=== PATIENT | male | born 1965 | race African-American/Black ===

== ENCOUNTER 2021-04-15 09:32 | Inpatient (IN) | payer OTHER ==
[2021-04-15] MEDS ORDERED: SODIUM CHLORIDE 1,000 ML IV STA (10:05)
[2021-04-15] MEDS ORDERED: morphine SULFATE 4 MG/ML VIAL IVPUSH ONE (10:05)
[2021-04-15] MEDS ORDERED: morphine SULFATE 4 MG/ML VIAL ONE (10:20)
[2021-04-15 11:52] LABS: BASO % 0.8 % (0-2.0); EOS % 2.5 % (0-4.5); HEMATOCRIT 20.6 % (35.4-49); LYMPH % 5.6 % (8-40); MCH 32.5 pg (25.7-33.7); MCHC 33.7 g/dl (32.0-35.9); MEAN CELL VOLUME 96.5 fl (80-96); MEAN PLT VOLUME 8.5 fl (7.5-11.1); MONO % 6.4 % (3.8-10.2); NEUT % 84.7 % (42.8-82.8); PLATELET COUNT 253 K/MM3 (134-434); RBC 2.13 M/mm3 (4.00-5.60); RDW 14.6 % (11.9-15.9); WHITE BLOOD COUNT 7.1 K/mm3 (4.0-10.0)
[2021-04-15 11:54] LABS: HEMOGLOBIN 6.9 GM/dL (11.7-16.9)
[2021-04-15 12:00] LABS: INR 1.21 (0.83-1.09); PROTHROMBIN TIME (PATIENT) 14.6 SEC (9.7-13.0)
[2021-04-15 12:03] LABS: ACTIVATED PTT 29.6 SECONDS (25.2-36.5)
[2021-04-15 12:10] LABS: EPI CELLS 7 /uL (0-25.1); HYALINE CASTS 0 /uL (0-3.1); PH,URINE 6.5 (5.0-8.0); URINE APPEARANCE TURBID; URINE BILIRUBIN 2+ (NEGATIVE); URINE COLOR RED; URINE GLUCOSE (UA) NEGATIVE (NEGATIVE); URINE KETONE NEGATIVE (NEGATIVE); URINE LEUK ESTERASE 3+ (NEGATIVE); URINE NITRITE POSITIVE (NEGATIVE); URINE PROTEIN 3+ (NEGATIVE); URINE RBC 13 /uL (0-23.9); URINE UROBILINOGEN 0.2 mg/dL (0.2-1.0); URINE WBC 0 /uL (0-25.8)
[2021-04-15 12:13] LABS: CALCIUM 7.5 mg/dL (8.5-10.1)
[2021-04-15 12:14] LABS: ALBUMIN 2.6 g/dl (3.4-5.0); BLOOD UREA NITROGEN 42.3 mg/dL (7-18)
[2021-04-15] MEDS ORDERED: CEFTRIAXONE 1,000 MG in DEXTROSE 5%-WATER - 50 ML IVPB ONE (12:15)
[2021-04-15 12:17] LABS: CREATININE 6.5 mg/dL (0.55-1.3)
[2021-04-15 12:19] LABS: BILIRUBIN,TOTAL 0.3 mg/dL (0.2-1); TOT PROT 6.7 g/dl (6.4-8.2)
[2021-04-15] MEDS ORDERED: CEFTRIAXONE 1 GM/50 ML BAG ONE (12:25)
[2021-04-15 12:32] LABS: URINE BACTERIA 2.3 /uL (0-1359)
[2021-04-15] MEDS ORDERED: DEXTROSE 5%-0.45% SALINE 1,000 ML IV SCH (14:30)
[2021-04-15] MEDS ORDERED: amLODIPine BESYLATE 5 MG TABLET (FP) PO SCH (14:45)
[2021-04-15] MEDS ORDERED: amLODIPine BESYLATE 5 MG TABLET (FP) ONE (15:32)
[2021-04-15] MEDS ORDERED: PANTOPRAZOLE 40 MG TABLET ONE (15:32)
[2021-04-15] MEDS ORDERED: MORPHINE SULFATE 2 MG/ML VIAL ONE (15:32)
[2021-04-15] MEDS: PANTOPRAZOLE 40 MG TABLET PO SCH (15:39)
[2021-04-15] MEDS: MORPHINE SULFATE 2 MG/ML VIAL IVPUSH PRN ×2 (15:39→20:25)
[2021-04-15 20:24] VITALS: BMI 26.3
[2021-04-15] MEDS ORDERED: IRON SUCROSE INJECTION 200 MG in SODIUM CHLORIDE 90 ML IVPB ONE (22:36)
[2021-04-15] MEDS ORDERED: MORPHINE SULFATE 2 MG/ML VIAL IVPUSH ONE (22:37)
[2021-04-15] MEDS: DEXTROSE 5%-NORMAL SALINE 1,000 ML IV SCH (23:17)
[2021-04-16] MEDS: morphine SULFATE 4 MG/ML VIAL IVPUSH PRN ×4 (01:09→20:13)
[2021-04-16] MEDS ORDERED: IRON SUCROSE INJECTION 100 MG in SODIUM CHLORIDE 95 ML IVPB ONE (06:51)
[2021-04-16 07:59] LABS: EOS % 4.6 % (0-4.5); HEMATOCRIT 19.8 % (35.4-49); MCH 33.4 pg (25.7-33.7); MCHC 34.4 g/dl (32.0-35.9); MEAN CELL VOLUME 97.3 fl (80-96); MEAN PLT VOLUME 8.3 fl (7.5-11.1); MONO % 5.6 % (3.8-10.2); NEUT % 76.8 % (42.8-82.8); PLATELET COUNT 280 K/MM3 (134-434); RBC 2.03 M/mm3 (4.00-5.60); RDW 14.9 % (11.9-15.9)
[2021-04-16 08:16] LABS: HEMOGLOBIN 6.8 GM/dL (11.7-16.9)
[2021-04-16 08:22] LABS: ALBUMIN 2.6 g/dl (3.4-5.0); BLOOD UREA NITROGEN 37.4 mg/dL (7-18); CALCIUM 7.2 mg/dL (8.5-10.1)
[2021-04-16 08:26] LABS: CREATININE 5.9 mg/dL (0.55-1.3)
[2021-04-16 08:27] LABS: TOT PROT 6.7 g/dl (6.4-8.2)
[2021-04-16 08:30] LABS: BILIRUBIN,TOTAL 0.3 mg/dL (0.2-1)
[2021-04-16] MEDS ORDERED: EPOETIN ALFA-EPBX 20,000 UNIT/ML VIAL SQ ONE (09:00)
[2021-04-16] MEDS ORDERED: PT OWN MED DRAWER 7, Y5N ONE (09:30)
[2021-04-16] MEDS: PANTOPRAZOLE 40 MG TABLET PO SCH (09:31)
[2021-04-16] MEDS: DEXTROSE 5%-NORMAL SALINE 1,000 ML IV SCH ×2 (09:33→20:12)
[2021-04-16] MEDS ORDERED: DARUNAVIR/COB/EMTRI/TENOF (SYMTUZA) TABLET (NF) PO SCH (10:00)
[2021-04-16] MEDS: CYANOCOBALAMIN 1,000 MCG TABLET (FP) PO SCH (10:53)
[2021-04-16] MEDS: FOLIC ACID 1 MG TABLET (FP) PO SCH (10:53)
[2021-04-17] MEDS: DEXTROSE 5%-NORMAL SALINE 1,000 ML IV SCH ×3 (01:11→17:07)
[2021-04-17] MEDS: morphine SULFATE 4 MG/ML VIAL IVPUSH PRN ×2 (01:11→05:55)
[2021-04-17 08:04] LABS: BASO % 0.7 % (0-2.0); EOS % 4.6 % (0-4.5); HEMATOCRIT 15.9 % (35.4-49); LYMPH % 9.9 % (8-40); MCH 32.8 pg (25.7-33.7); MCHC 33.6 g/dl (32.0-35.9); MEAN CELL VOLUME 97.7 fl (80-96); MEAN PLT VOLUME 8.1 fl (7.5-11.1); MONO % 7.1 % (3.8-10.2); NEUT % 77.7 % (42.8-82.8); PLATELET COUNT 206 K/MM3 (134-434); RBC 1.63 M/mm3 (4.00-5.60); RDW 14.9 % (11.9-15.9); WHITE BLOOD COUNT 4.3 K/mm3 (4.0-10.0)
[2021-04-17 08:19] LABS: CALCIUM 7.4 mg/dL (8.5-10.1)
[2021-04-17 08:22] LABS: BLOOD UREA NITROGEN 34.4 mg/dL (7-18)
[2021-04-17 08:25] LABS: CREATININE 5.6 mg/dL (0.55-1.3)
[2021-04-17 09:18] LABS: HEMOGLOBIN 5.3 GM/dL (11.7-16.9)
[2021-04-17] MEDS ORDERED: EPOETIN ALFA-EPBX 20,000 UNIT/ML VIAL SQ ONE ×2 (10:01→10:05)
[2021-04-17] MEDS: CYANOCOBALAMIN 1,000 MCG TABLET (FP) PO SCH (11:38)
[2021-04-17] MEDS: POLYETHYLENE GLYCOL 3350 119 GM BTL PO SCH (11:38)
[2021-04-17] MEDS: PANTOPRAZOLE 40 MG TABLET PO SCH (11:38)
[2021-04-17] MEDS: ATOVAQUONE 750 MG/5 ML (UNIT-DOSE PACKAGING) PO SCH (11:38)
[2021-04-17] MEDS: FOLIC ACID 1 MG TABLET (FP) PO SCH (11:38)
[2021-04-17] MEDS ORDERED: IRON SUCROSE INJECTION 100 MG in SODIUM CHLORIDE 95 ML IVPB ONE (14:00)
[2021-04-18] MEDS: DEXTROSE 5%-NORMAL SALINE 1,000 ML IV SCH (02:15)
[2021-04-18 07:29] LABS: BASO % 0.6 % (0-2.0); EOS % 3.5 % (0-4.5); MCH 32.6 pg (25.7-33.7); MCHC 33.4 g/dl (32.0-35.9); MEAN CELL VOLUME 97.6 fl (80-96); MONO % 6.7 % (3.8-10.2); NEUT % 73.2 % (42.8-82.8); PLATELET COUNT 231 K/MM3 (134-434); RBC 1.64 M/mm3 (4.00-5.60); WHITE BLOOD COUNT 5.3 K/mm3 (4.0-10.0)
[2021-04-18 07:31] LABS: HEMOGLOBIN 5.3 GM/dL (11.7-16.9)
[2021-04-18 07:52] LABS: ALBUMIN 2.2 g/dl (3.4-5.0); BLOOD UREA NITROGEN 27.8 mg/dL (7-18); CALCIUM 7.3 mg/dL (8.5-10.1)
[2021-04-18 07:57] LABS: BILIRUBIN,TOTAL 0.4 mg/dL (0.2-1); TOT PROT 5.7 g/dl (6.4-8.2)
[2021-04-18] MEDS: CYANOCOBALAMIN 1,000 MCG TABLET (FP) PO SCH (09:33)
[2021-04-18] MEDS: FOLIC ACID 1 MG TABLET (FP) PO SCH (09:33)
[2021-04-18] MEDS: PANTOPRAZOLE 40 MG TABLET PO SCH (09:34)
[2021-04-18] MEDS: POLYETHYLENE GLYCOL 3350 119 GM BTL PO SCH (09:34)
[2021-04-18] MEDS ORDERED: EPOETIN ALFA-EPBX 20,000 UNIT/ML VIAL SQ ONE (10:00)
[2021-04-18] MEDS: ATOVAQUONE 750 MG/5 ML (UNIT-DOSE PACKAGING) PO SCH (12:27)
[2021-04-18] MEDS ORDERED: DEXTROSE 5%-WATER - 1,000 ML IV SCH (13:00)
[2021-04-18] MEDS ORDERED: IRON SUCROSE INJECTION 100 MG in SODIUM CHLORIDE 95 ML IVPB ONE (14:24)
[2021-04-19] MEDS: morphine SULFATE 4 MG/ML VIAL IVPUSH PRN (01:55)
[2021-04-19 05:55] VITALS: PULSE 99
[2021-04-19 07:59] LABS: BASO % 0.7 % (0-2.0); EOS % 3.9 % (0-4.5); LYMPH % 13.3 % (8-40); MCH 32.5 pg (25.7-33.7); MCHC 32.9 g/dl (32.0-35.9); MEAN CELL VOLUME 98.8 fl (80-96); MEAN PLT VOLUME 7.9 fl (7.5-11.1); MONO % 6.8 % (3.8-10.2); NEUT % 75.3 % (42.8-82.8); PLATELET COUNT 241 K/MM3 (134-434); RBC 1.56 M/mm3 (4.00-5.60); WHITE BLOOD COUNT 5.9 K/mm3 (4.0-10.0)
[2021-04-19 08:19] LABS: HEMATOCRIT 15.5 % (35.4-49); HEMOGLOBIN 5.1 GM/dL (11.7-16.9)
[2021-04-19 08:20] LABS: CALCIUM 7.4 mg/dL (8.5-10.1)
[2021-04-19 08:24] LABS: CREATININE 4.7 mg/dL (0.55-1.3)
[2021-04-19] MEDS ORDERED: EPOETIN ALFA-EPBX 20,000 UNIT/ML VIAL SQ ONE (09:00)
[2021-04-19 10:42] LABS: ANISOCYTOSIS 0; MACROCYTOSIS 0; PLATELET ESTIMATE NORMAL
[2021-04-19] MEDS: PANTOPRAZOLE 40 MG TABLET PO SCH (10:55)
[2021-04-19] MEDS: CYANOCOBALAMIN 1,000 MCG TABLET (FP) PO SCH (10:55)
[2021-04-19] MEDS: FOLIC ACID 1 MG TABLET (FP) PO SCH (10:55)
[2021-04-19] MEDS: POLYETHYLENE GLYCOL 3350 119 GM BTL PO SCH (10:56)
[2021-04-19 12:50] VITALS: BP 129/70; TEMP 98.6
== END 2021-04-19 14:46 | disposition short-term general hospital (02) | DRG 683 ==
LOC: JER 09:32 → JERBED 12:55 → J7W 19:48
PROVIDERS: ADMIT Internal Medicine; ATTEND Internal Medicine
DX: N17.9 Acute kidney failure, unspecified (principal); N39.0 Urinary tract infection, site not specified; E87.0 Hyperosmolality and hypernatremia; D62 Acute posthemorrhagic anemia; Z21 Asymptomatic human immunodeficiency virus [HIV] infection status; R31.0 Gross hematuria; I12.9 Hypertensive chronic kidney disease with stage 1 through stage 4 chronic kidney disease, or unspecified chronic kidney disease; N18.9 Chronic kidney disease, unspecified; D64.9 Anemia, unspecified; E88.09 Other disorders of plasma-protein metabolism, not elsewhere classified; R10.2 Pelvic and perineal pain; D50.9 Iron deficiency anemia, unspecified; Z85.46 Personal history of malignant neoplasm of prostate
CPT/HCPCS: 36415; 71045-TC-FY; 76775-TC; 76856-TC; 80048; 80053; 81003; 82728; 83540; 83550; 83605; 85025; 85379; 85610; 85730; 86359; 86360; 87086; 93005; 93010; 97116-GP; 97161-GP; 99285-25; C9803; J1756; U0003; U0005

== ENCOUNTER 2022-05-25 11:52 | Inpatient (IN) | payer OTHER ==
[2022-05-25 12:18] VITALS: BMI 23.7
[2022-05-25 13:49] LABS: BASO % 0.9 % (0-2.0); EOS % 6.2 % (0-4.5); HEMATOCRIT 28.1 % (35.4-49); HEMOGLOBIN 9.2 GM/dL (11.7-16.9); LYMPH % 11.2 % (8-40); MCH 32.1 pg (25.7-33.7); MCHC 32.8 g/dl (32.0-35.9); MEAN CELL VOLUME 97.8 fl (80-96); MEAN PLT VOLUME 8.1 fl (7.5-11.1); MONO % 15.7 % (3.8-10.2); PLATELET COUNT 73 10^3/uL (134-434); RBC 2.87 M/mm3 (4.00-5.60); WHITE BLOOD COUNT 2.7 K/mm3 (4.0-10.0)
[2022-05-25 13:58] LABS: CHLORIDE 113 mmol/L (98-107); SODIUM 141 mmol/L (136-145)
[2022-05-25 14:00] LABS: ALBUMIN 3.2 g/dl (3.4-5.0); BLOOD UREA NITROGEN 102.5 mg/dL (7-18); CALCIUM 7.8 mg/dL (8.5-10.1); CO2 17 mmol/L (21-32); GLUCOSE,RANDOM 82 mg/dL (74-106)
[2022-05-25 14:01] LABS: MAGNESIUM 1.9 mg/dL (1.8-2.4)
[2022-05-25 14:03] LABS: PHOSPHOROUS 6.2 mg/dL (2.5-4.9); SGOT/AST 30 U/L (15-37); SGPT/ALT 27 U/L (13-61)
[2022-05-25 14:05] LABS: BILIRUBIN,TOTAL 0.4 mg/dL (0.2-1); TOT PROT 7.7 g/dl (6.4-8.2)
[2022-05-25 14:06] LABS: ALK PHOS 69 U/L (45-117)
[2022-05-25 14:11] LABS: ANION GAP 11 MMOL/L (8-16); CREATININE 16.8 mg/dL (0.55-1.3)
[2022-05-25] MEDS ORDERED: CALCIUM GLUCONATE 10% - 1,000 MG/10 ML VIAL IVPUSH ONE (14:42)
[2022-05-25] MEDS ORDERED: CALCIUM GLUCONATE 10% - 1,000 MG/10 ML VIAL ONE ×2 (14:43→15:11)
[2022-05-25] MEDS ORDERED: INSULIN REGULAR HUMAN 100 UNITS/ML *VIAL IVPUSH ONE (14:43)
[2022-05-25] MEDS ORDERED: DEXTROSE 50%-WATER - 25 GM/50 ML VIAL IVPUSH ONE (14:44)
[2022-05-25] MEDS ORDERED: SODIUM BICARBONATE 8.4% 50 MEQ/50 ML DISP.SYRIN IVPUSH ONE (14:45)
[2022-05-25] MEDS ORDERED: VANCOMYCIN 1 GM in D5W (PRE-DOCKED) 1,000 MG/250 ML IVPB ONE (15:07)
[2022-05-25] MEDS ORDERED: SODIUM CHLORIDE 1,000 ML IV STA (15:10)
[2022-05-25] MEDS ORDERED: CEFEPIME HCL/D5W 1 GM/50 ML BAG IVPB ONE (15:10)
[2022-05-25] MEDS ORDERED: INSULIN REGULAR HUMAN 100 UNITS/ML *VIAL ONE (15:11)
[2022-05-25] MEDS ORDERED: DEXTROSE 50%-WATER 25 GM/50 ML DISP.SYRIN ONE (15:11)
[2022-05-25] MEDS ORDERED: SODIUM BICARBONATE 8.4% 50 MEQ/50 ML VIAL ONE (15:12)
[2022-05-25] MEDS ORDERED: VANCOMYCIN 1 GRAM (PRE-DOCKED) 1,000 MG/250 ML BAG IVPB ONE (15:41)
[2022-05-25] MEDS ORDERED: CEFEPIME 1 GM in DEXTROSE 5%-WATER 100 ML IVPB ONE (16:00)
[2022-05-25] MEDS ORDERED: SODIUM CHLORIDE 250 ML IV PRN (16:37)
[2022-05-25] MEDS ORDERED: ACETAMINOPHEN 325 MG TABLET (FP) PO PRN (19:02)
[2022-05-25] MEDS: DOCUSATE SODIUM 100 MG CAPSULE (FP) PO SCH (21:54)
[2022-05-25] MEDS ORDERED: HEPARIN NA (PORCINE) 5,000 UNITS/ML 1ML VIAL ONE (21:55)
[2022-05-25] MEDS ORDERED: CEFEPIME 1 GM/100 ML BAG IVPB ONE ×2 (21:56→22:19)
[2022-05-25] MEDS: HEPARIN NA (PORCINE) 5,000 UNITS/ML 1ML VIAL SQ SCH (21:58)
[2022-05-26] MEDS ORDERED: PIPERACILLIN/TAZOB 2.25 GM 2.25 GM/50 ML BAG IVPB ONE (01:25)
[2022-05-26] MEDS ORDERED: ACETAMINOPHEN 325 MG TABLET (FP) ONE (01:25)
[2022-05-26] MEDS: PIPERACILLIN/TAZOB 2.25 GM 2.25 GM in DEXTROSE 5%-WATER - 50 ML IVPB SCH ×3 (01:30→17:35)
[2022-05-26] MEDS: VANCOMYCIN 250 MG/5 ML ORAL SOLUTION PO SCH ×4 (03:08→17:35)
[2022-05-26] MEDS ORDERED: VANCOMYCIN 250 MG/5 ML ORAL SOLUTION PO SCH (06:00)
[2022-05-26 06:26] LABS: BASO % 0.8 % (0-2.0); EOS % 5.5 % (0-4.5); HEMATOCRIT 30.6 % (35.4-49); HEMOGLOBIN 10.2 GM/dL (11.7-16.9); LYMPH % 9.4 % (8-40); MCH 31.8 pg (25.7-33.7); MCHC 33.3 g/dl (32.0-35.9); MEAN CELL VOLUME 95.5 fl (80-96); MEAN PLT VOLUME 8.2 fl (7.5-11.1); MONO % 8.1 % (3.8-10.2); NEUT % 76.2 % (42.8-82.8); PLATELET COUNT 71 10^3/uL (134-434); RBC 3.21 M/mm3 (4.00-5.60); RDW 17.1 % (11.9-15.9); WHITE BLOOD COUNT 2.5 K/mm3 (4.0-10.0)
[2022-05-26 06:40] LABS: CHLORIDE 104 mmol/L (98-107); SODIUM 140 mmol/L (136-145)
[2022-05-26 06:41] LABS: CALCIUM 7.4 mg/dL (8.5-10.1)
[2022-05-26 06:42] LABS: ALBUMIN 3.3 g/dl (3.4-5.0); ANION GAP 10 MMOL/L (8-16); CO2 26 mmol/L (21-32); GLUCOSE,RANDOM 86 mg/dL (74-106); MAGNESIUM 1.7 mg/dL (1.8-2.4)
[2022-05-26 06:45] LABS: SGOT/AST 31 U/L (15-37); SGPT/ALT 27 U/L (13-61)
[2022-05-26 06:46] LABS: BILIRUBIN,TOTAL 0.7 mg/dL (0.2-1)
[2022-05-26 06:47] LABS: TOT PROT 8.1 g/dl (6.4-8.2)
[2022-05-26 06:48] LABS: ALK PHOS 72 U/L (45-117)
[2022-05-26] MEDS: HEPARIN NA (PORCINE) 5,000 UNITS/ML 1ML VIAL SQ SCH ×3 (07:00→21:18)
[2022-05-26 07:02] LABS: BLOOD UREA NITROGEN 60.1 mg/dL (7-18); CREATININE 11.4 mg/dL (0.55-1.3)
[2022-05-26] MEDS ORDERED: DEXTROSE 5%-WATER - 50 ML IVPB ONE ×2 (10:16→16:38)
[2022-05-26] MEDS ORDERED: PIPERACILLIN/TAZOBACTAM 2.25 GM VIAL IVPB ONE ×2 (10:16→16:38)
[2022-05-26] MEDS: DOCUSATE SODIUM 100 MG CAPSULE (FP) PO SCH ×2 (10:20→21:18)
[2022-05-26] MEDS ORDERED: VANCOMYCIN 1 GM in D5W (PRE-DOCKED) 1,000 MG/250 ML IVPB SCH (16:00)
[2022-05-27] MEDS: VANCOMYCIN 250 MG/5 ML ORAL SOLUTION PO SCH ×3 (01:00→13:02)
[2022-05-27] MEDS: PIPERACILLIN/TAZOB 2.25 GM 2.25 GM in DEXTROSE 5%-WATER - 50 ML IVPB SCH ×3 (01:00→17:13)
[2022-05-27] MEDS ORDERED: PIPERACILLIN/TAZOBACTAM 2.25 GM VIAL IVPB ONE ×3 (01:03→16:39)
[2022-05-27] MEDS ORDERED: DEXTROSE 5%-WATER - 50 ML IVPB ONE ×3 (01:03→16:39)
[2022-05-27] MEDS ORDERED: LORazepam 2 MG/ML SDV VIAL IVPUSH SCH (06:00)
[2022-05-27 06:46] LABS: ARTERIAL BLD GAS O2 SATURATION 99.8 % (95-98); ARTERIAL BLOOD GAS BASE EXCESS -4.3 mmol/L (-2-2); ARTERIAL BLOOD GAS PO2 455.5 mmHg (80-100); ARTERIAL BLOOD GAS pH 7.357 (7.350-7.450)
[2022-05-27 06:47] LABS: ALLENS TEST POSITIVE
[2022-05-27] MEDS: HEPARIN NA (PORCINE) 5,000 UNITS/ML 1ML VIAL SQ SCH ×3 (07:13→23:00)
[2022-05-27] MEDS: DOCUSATE SODIUM 100 MG CAPSULE (FP) PO SCH ×3 (09:08→23:02)
[2022-05-27 09:28] LABS: COCAINE, UR NEGATIVE (NEGATIVE); METHADONE, UR NEGATIVE (NEGATIVE); OPIATES, URI NEGATIVE (NEGATIVE); PHENCYCLIDINE,URINE NEGATIVE (NEGATIVE); URINE AMPHETAMINES NEGATIVE (NEGATIVE); URINE BARBITURATES NEGATIVE (NEGATIVE); URINE BENZODIAZEPINES NEGATIVE (NEGATIVE)
[2022-05-27] MEDS ORDERED: LORazepam 2 MG/ML SDV VIAL IVPUSH PRN (09:55)
[2022-05-27 13:18] LABS: BASO % 0.8 % (0-2.0); EOS % 4.2 % (0-4.5); HEMATOCRIT 27.4 % (35.4-49); HEMOGLOBIN 9.1 GM/dL (11.7-16.9); LYMPH % 8.1 % (8-40); MCH 31.7 pg (25.7-33.7); MCHC 33.3 g/dl (32.0-35.9); MEAN PLT VOLUME 8.4 fl (7.5-11.1); NEUT % 71.9 % (42.8-82.8); PLATELET COUNT 68 10^3/uL (134-434); RBC 2.88 M/mm3 (4.00-5.60); RDW 16.8 % (11.9-15.9); WHITE BLOOD COUNT 2.1 K/mm3 (4.0-10.0)
[2022-05-27] MEDS: OXcarbazepine 150 MG TABLET (UD) PO SCH ×2 (13:48→23:00)
[2022-05-27] MEDS ORDERED: VANCOMYCIN 1 GM in D5W (PRE-DOCKED) 1,000 MG/250 ML IVPB SCH (16:00)
[2022-05-27 16:05] LABS: CHLORIDE 104 mmol/L (98-107); SODIUM 142 mmol/L (136-145)
[2022-05-27 16:07] LABS: ALBUMIN 3.1 g/dl (3.4-5.0); ANION GAP 9 MMOL/L (8-16); CALCIUM 7.4 mg/dL (8.5-10.1); CO2 29 mmol/L (21-32); GLUCOSE,RANDOM 99 mg/dL (74-106)
[2022-05-27 16:11] LABS: SGOT/AST 28 U/L (15-37); SGPT/ALT 25 U/L (13-61)
[2022-05-27 16:13] LABS: BILIRUBIN,TOTAL 0.6 mg/dL (0.2-1); TOT PROT 7.4 g/dl (6.4-8.2)
[2022-05-27 16:14] LABS: ALK PHOS 59 U/L (45-117)
[2022-05-28] MEDS ORDERED: PIPERACILLIN/TAZOBACTAM 2.25 GM VIAL IVPB ONE ×2 (02:03→08:57)
[2022-05-28] MEDS ORDERED: DEXTROSE 5%-WATER - 50 ML IVPB ONE ×2 (02:03→08:57)
[2022-05-28] MEDS: PIPERACILLIN/TAZOB 2.25 GM 2.25 GM in DEXTROSE 5%-WATER - 50 ML IVPB SCH ×2 (02:05→09:06)
[2022-05-28] MEDS: HEPARIN NA (PORCINE) 5,000 UNITS/ML 1ML VIAL SQ SCH ×3 (06:03→22:28)
[2022-05-28 07:42] LABS: BASO % 0.7 % (0-2.0); EOS % 6.4 % (0-4.5); HEMATOCRIT 28.3 % (35.4-49); HEMOGLOBIN 9.4 GM/dL (11.7-16.9); LYMPH % 17.2 % (8-40); MCH 32.1 pg (25.7-33.7); MCHC 33.2 g/dl (32.0-35.9); MEAN CELL VOLUME 96.6 fl (80-96); MEAN PLT VOLUME 8.8 fl (7.5-11.1); MONO % 15.6 % (3.8-10.2); NEUT % 60.1 % (42.8-82.8); PLATELET COUNT 60 10^3/uL (134-434); RBC 2.93 M/mm3 (4.00-5.60); RDW 16.7 % (11.9-15.9); WHITE BLOOD COUNT 2.2 K/mm3 (4.0-10.0)
[2022-05-28 07:58] LABS: CHLORIDE 101 mmol/L (98-107); SODIUM 140 mmol/L (136-145)
[2022-05-28 08:03] LABS: CALCIUM 7.6 mg/dL (8.5-10.1)
[2022-05-28 08:04] LABS: ALBUMIN 3.2 g/dl (3.4-5.0); ANION GAP 11 MMOL/L (8-16); BLOOD UREA NITROGEN 39.7 mg/dL (7-18); CO2 29 mmol/L (21-32); GLUCOSE,RANDOM 90 mg/dL (74-106); MAGNESIUM 2.3 mg/dL (1.8-2.4)
[2022-05-28 08:07] LABS: SGOT/AST 35 U/L (15-37); SGPT/ALT 30 U/L (13-61)
[2022-05-28 08:08] LABS: BILIRUBIN,TOTAL 0.7 mg/dL (0.2-1)
[2022-05-28 08:09] LABS: ALK PHOS 60 U/L (45-117); TOT PROT 7.8 g/dl (6.4-8.2)
[2022-05-28 08:22] LABS: CREATININE 11.1 mg/dL (0.55-1.3)
[2022-05-28] MEDS: DOCUSATE SODIUM 100 MG CAPSULE (FP) PO SCH ×2 (09:04→22:27)
[2022-05-28] MEDS: OXcarbazepine 150 MG TABLET (UD) PO SCH ×2 (09:04→22:27)
[2022-05-28] MEDS ORDERED: OXcarbazepine 300 MG/5 ML 250 ML BULK BOTTLE PO ONE (15:35)
[2022-05-28] MEDS: VANCOMYCIN 250 MG/5 ML ORAL SOLUTION PO SCH ×2 (18:43→23:53)
[2022-05-29] MEDS: HEPARIN NA (PORCINE) 5,000 UNITS/ML 1ML VIAL SQ SCH ×3 (06:49→21:34)
[2022-05-29] MEDS: VANCOMYCIN 250 MG/5 ML ORAL SOLUTION PO SCH ×2 (06:49→12:21)
[2022-05-29 07:29] LABS: BASO % 0.7 % (0-2.0); HEMATOCRIT 30.1 % (35.4-49); HEMOGLOBIN 9.9 GM/dL (11.7-16.9); LYMPH % 12.5 % (8-40); MCH 31.8 pg (25.7-33.7); MEAN CELL VOLUME 96.4 fl (80-96); MEAN PLT VOLUME 8.8 fl (7.5-11.1); MONO % 10.9 % (3.8-10.2); NEUT % 71.9 % (42.8-82.8); PLATELET COUNT 69 10^3/uL (134-434); RBC 3.12 M/mm3 (4.00-5.60); RDW 16.6 % (11.9-15.9); WHITE BLOOD COUNT 2.9 K/mm3 (4.0-10.0)
[2022-05-29 07:43] LABS: CHLORIDE 101 mmol/L (98-107); SODIUM 141 mmol/L (136-145)
[2022-05-29 08:07] LABS: ALBUMIN 3.5 g/dl (3.4-5.0); ANION GAP 12 MMOL/L (8-16); BLOOD UREA NITROGEN 30.8 mg/dL (7-18); CO2 29 mmol/L (21-32); GLUCOSE,RANDOM 96 mg/dL (74-106); MAGNESIUM 2.2 mg/dL (1.8-2.4)
[2022-05-29 08:09] LABS: SGOT/AST 47 U/L (15-37)
[2022-05-29 08:11] LABS: BILIRUBIN,TOTAL 0.5 mg/dL (0.2-1); TOT PROT 8.4 g/dl (6.4-8.2)
[2022-05-29 08:12] LABS: ALK PHOS 64 U/L (45-117); SGPT/ALT 38 U/L (13-61)
[2022-05-29 08:15] LABS: CREATININE 10.3 mg/dL (0.55-1.3)
[2022-05-29] MEDS: DOCUSATE SODIUM 100 MG CAPSULE (FP) PO SCH ×2 (09:45→21:35)
[2022-05-29] MEDS: OXcarbazepine 150 MG TABLET (UD) PO SCH ×2 (09:48→21:34)
[2022-05-29] MEDS ORDERED: SODIUM CHLORIDE 250 ML IV PRN (15:34)
[2022-05-29] MEDS: BACITRACIN 15 GM TUBE TOPICAL OINTMENT TP SCH ×3 (16:15→21:35)
[2022-05-29] MEDS ORDERED: OXcarbazepine 300 MG TABLET (UD) PO SCH (23:48)
[2022-05-30] MEDS: HEPARIN NA (PORCINE) 5,000 UNITS/ML 1ML VIAL SQ SCH ×2 (06:46→13:36)
[2022-05-30 08:07] LABS: CHLORIDE 104 mmol/L (98-107); SODIUM 142 mmol/L (136-145)
[2022-05-30 08:08] LABS: BASO % 0.5 % (0-2.0); EOS % 5.1 % (0-4.5); HEMATOCRIT 31.1 % (35.4-49); HEMOGLOBIN 10.2 GM/dL (11.7-16.9); LYMPH % 15.5 % (8-40); MCH 31.8 pg (25.7-33.7); MCHC 32.9 g/dl (32.0-35.9); MEAN CELL VOLUME 96.9 fl (80-96); MEAN PLT VOLUME 8.9 fl (7.5-11.1); MONO % 12.4 % (3.8-10.2); NEUT % 66.5 % (42.8-82.8); PLATELET COUNT 70 10^3/uL (134-434); RBC 3.21 M/mm3 (4.00-5.60); RDW 16.4 % (11.9-15.9); WHITE BLOOD COUNT 2.6 K/mm3 (4.0-10.0)
[2022-05-30 08:30] LABS: ALBUMIN 3.4 g/dl (3.4-5.0); ANION GAP 11 MMOL/L (8-16); CALCIUM 7.4 mg/dL (8.5-10.1); CO2 27 mmol/L (21-32); GLUCOSE,RANDOM 84 mg/dL (74-106); MAGNESIUM 2.2 mg/dL (1.8-2.4)
[2022-05-30 08:33] LABS: SGOT/AST 52 U/L (15-37)
[2022-05-30 08:34] LABS: BILIRUBIN,TOTAL 0.5 mg/dL (0.2-1); SGPT/ALT 43 U/L (13-61); TOT PROT 8.1 g/dl (6.4-8.2)
[2022-05-30 08:35] LABS: ALK PHOS 63 U/L (45-117)
[2022-05-30 08:52] LABS: CREATININE 13.1 mg/dL (0.55-1.3)
[2022-05-30] MEDS: DOCUSATE SODIUM 100 MG CAPSULE (FP) PO SCH (11:32)
[2022-05-30] MEDS: BACITRACIN 15 GM TUBE TOPICAL OINTMENT TP SCH (11:33)
[2022-05-30 11:57] VITALS: PULSE 99
[2022-05-30 15:00] VITALS: TEMP 99
[2022-05-30 17:17] VITALS: BP 125/77
== END 2022-05-30 17:13 | disposition home health service (06) | DRG 371 ==
LOC: JER 11:52 → JERBED 14:44 → J2W 05-26 09:00
PROVIDERS: ADMIT Internal Medicine; ATTEND Nurse Practitioner Acute Care
PROC: 5A1D70Z Performance of Urinary Filtration, Intermittent, Less than 6 Hours Per Day (ICD-10-PCS; principal; 2022-05-25)
PROC: 5A1D70Z Performance of Urinary Filtration, Intermittent, Less than 6 Hours Per Day (ICD-10-PCS; 2022-05-26)
PROC: 5A1D70Z Performance of Urinary Filtration, Intermittent, Less than 6 Hours Per Day (ICD-10-PCS; 2022-05-28)
PROC: 5A1D70Z Performance of Urinary Filtration, Intermittent, Less than 6 Hours Per Day (ICD-10-PCS; 2022-05-30)
DX: A04.72 Enterocolitis due to Clostridium difficile, not specified as recurrent (principal); N18.6 End stage renal disease; I12.0 Hypertensive chronic kidney disease with stage 5 chronic kidney disease or end stage renal disease; D61.818 Other pancytopenia; R65.10 Systemic inflammatory response syndrome (SIRS) of non-infectious origin without acute organ dysfunction; K60.2 Anal fissure, unspecified; Z21 Asymptomatic human immunodeficiency virus [HIV] infection status; G40.909 Epilepsy, unspecified, not intractable, without status epilepticus; D64.9 Anemia, unspecified; A53.9 Syphilis, unspecified; Z99.2 Dependence on renal dialysis; Z85.46 Personal history of malignant neoplasm of prostate; Z91.14 Patient's other noncompliance with medication regimen
CPT/HCPCS: 0241U-QW; 36415; 36600; 70450-TC; 71045-TC-FY; 80053; 80307; 82550; 82803; 82962; 83605; 83735; 84100; 84132; 84439; 84443; 85025; 86359; 86360; 86593; 86780; 86803; 87015; 87040; 87045; 87046; 87207; 87209; 87324; 87328; 87329; 87340; 87449; 87491; 87493; 87591; 87899; 93005; 93010; 95816; 99285-25; J1644

== ENCOUNTER 2022-06-01 11:36 | Inpatient (IN) | payer OTHER ==
[2022-06-01 12:18] VITALS: BMI 21.2
[2022-06-01 14:02] LABS: BASO % 0.5 % (0-2.0); EOS % 0.5 % (0-4.5); HEMATOCRIT 28.7 % (35.4-49); HEMOGLOBIN 9.3 GM/dL (11.7-16.9); LYMPH % 7.2 % (8-40); MCH 31.5 pg (25.7-33.7); MCHC 32.6 g/dl (32.0-35.9); MEAN CELL VOLUME 96.8 fl (80-96); MEAN PLT VOLUME 8.5 fl (7.5-11.1); MONO % 12.8 % (3.8-10.2); PLATELET COUNT 80 10^3/uL (134-434); RBC 2.96 M/mm3 (4.00-5.60); WHITE BLOOD COUNT 3.7 K/mm3 (4.0-10.0)
[2022-06-01 14:30] LABS: CALCIUM 8.2 mg/dL (8.5-10.1)
[2022-06-01 14:31] LABS: ALBUMIN 3.5 g/dl (3.4-5.0); BLOOD UREA NITROGEN 17.2 mg/dL (7-18)
[2022-06-01 14:34] LABS: CREATININE 5.9 mg/dL (0.55-1.3); PHOSPHOROUS 3.1 mg/dL (2.5-4.9)
[2022-06-01 14:35] LABS: BILIRUBIN,TOTAL 0.6 mg/dL (0.2-1); TOT PROT 8.6 g/dl (6.4-8.2)
[2022-06-01 17:48] LABS: INR 0.99 (0.83-1.09); PROTHROMBIN TIME (PATIENT) 11.4 SEC (9.7-13.0)
[2022-06-01 17:51] LABS: ACTIVATED PTT 24.9 SECONDS (25.2-36.5)
[2022-06-01 19:54] LABS: CSF APPEARANCE CLEAR (CLEAR); CSF COLOR COLORLESS (COLORLESS); CSF WBC 0 mm3 (0-5)
[2022-06-01] MEDS: CALCIUM ACETATE 667 MG CAPSULE (FP) PO SCH (20:38)
[2022-06-01] MEDS: OXcarbazepine 300 MG TABLET (UD) PO SCH (22:21)
[2022-06-02] MEDS: CALCIUM ACETATE 667 MG CAPSULE (FP) PO SCH ×3 (08:23→18:10)
[2022-06-02] MEDS: OXcarbazepine 300 MG TABLET (UD) PO SCH ×2 (10:15→21:51)
[2022-06-02 10:34] LABS: BASO % 0.7 % (0-2.0); EOS % 2.7 % (0-4.5); HEMATOCRIT 27.5 % (35.4-49); LYMPH % 14.7 % (8-40); MCH 31.5 pg (25.7-33.7); MCHC 32.9 g/dl (32.0-35.9); MEAN CELL VOLUME 95.9 fl (80-96); MEAN PLT VOLUME 9.2 fl (7.5-11.1); MONO % 15.9 % (3.8-10.2); PLATELET COUNT 90 10^3/uL (134-434); RBC 2.86 M/mm3 (4.00-5.60); RDW 16.2 % (11.9-15.9); WHITE BLOOD COUNT 2.3 K/mm3 (4.0-10.0)
[2022-06-02 11:17] LABS: CHLORIDE 94 mmol/L (98-107); SODIUM 136 mmol/L (136-145)
[2022-06-02 11:26] LABS: CALCIUM 8.2 mg/dL (8.5-10.1)
[2022-06-02 11:27] LABS: ALBUMIN 3.3 g/dl (3.4-5.0); BLOOD UREA NITROGEN 28.9 mg/dL (7-18); GLUCOSE,RANDOM 104 mg/dL (74-106)
[2022-06-02 11:29] LABS: ANION GAP 10 MMOL/L (8-16); CO2 32 mmol/L (21-32)
[2022-06-02 11:30] LABS: SGOT/AST 82 U/L (15-37); SGPT/ALT 69 U/L (13-61)
[2022-06-02 11:31] LABS: BILIRUBIN,TOTAL 0.5 mg/dL (0.2-1); TOT PROT 7.7 g/dl (6.4-8.2)
[2022-06-02 11:33] LABS: ALK PHOS 60 U/L (45-117)
[2022-06-02 11:34] LABS: CREATININE 8.7 mg/dL (0.55-1.3)
[2022-06-03] MEDS: CALCIUM ACETATE 667 MG CAPSULE (FP) PO SCH ×4 (08:32→17:38)
[2022-06-03 09:30] LABS: HEMATOCRIT 28.5 % (35.4-49); HEMOGLOBIN 9.4 GM/dL (11.7-16.9); MCH 31.7 pg (25.7-33.7); MCHC 32.8 g/dl (32.0-35.9); MEAN CELL VOLUME 96.4 fl (80-96); MEAN PLT VOLUME 8.4 fl (7.5-11.1); PLATELET COUNT 81 10^3/uL (134-434); RBC 2.96 M/mm3 (4.00-5.60); RDW 16.1 % (11.9-15.9); WHITE BLOOD COUNT 2.4 K/mm3 (4.0-10.0)
[2022-06-03] MEDS: OXcarbazepine 300 MG TABLET (UD) PO SCH ×2 (09:38→22:53)
[2022-06-03 09:48] LABS: CHLORIDE 95 mmol/L (98-107); SODIUM 139 mmol/L (136-145)
[2022-06-03 10:00] LABS: BLOOD UREA NITROGEN 42.7 mg/dL (7-18)
[2022-06-03 10:01] LABS: ANION GAP 17 MMOL/L (8-16); CO2 28 mmol/L (21-32); GLUCOSE,RANDOM 129 mg/dL (74-106)
[2022-06-03 10:02] LABS: CALCIUM 8.3 mg/dL (8.5-10.1)
[2022-06-03 10:05] LABS: CREATININE 11.9 mg/dL (0.55-1.3)
[2022-06-03] MEDS ORDERED: SODIUM CHLORIDE 250 ML IV PRN (13:07)
[2022-06-04] MEDS ORDERED: ACETAMINOPHEN 500 MG TABLET (FP) PO ONE (06:07)
[2022-06-04] MEDS ORDERED: ACETAMINOPHEN 325 MG TABLET (FP) PO ONE (06:07)
[2022-06-04 09:47] LABS: HEMATOCRIT 28.8 % (35.4-49); HEMOGLOBIN 9.4 GM/dL (11.7-16.9); MCH 31.5 pg (25.7-33.7); MCHC 32.7 g/dl (32.0-35.9); MEAN CELL VOLUME 96.1 fl (80-96); MEAN PLT VOLUME 9.7 fl (7.5-11.1); PLATELET COUNT 150 10^3/uL (134-434); RDW 16.3 % (11.9-15.9); WHITE BLOOD COUNT 4.2 K/mm3 (4.0-10.0)
[2022-06-04 10:00] LABS: CHLORIDE 94 mmol/L (98-107); SODIUM 136 mmol/L (136-145)
[2022-06-04] MEDS: CALCIUM ACETATE 667 MG CAPSULE (FP) PO SCH ×4 (10:01→18:34)
[2022-06-04] MEDS: OXcarbazepine 300 MG TABLET (UD) PO SCH ×2 (10:02→21:09)
[2022-06-04 10:05] LABS: CALCIUM 8.2 mg/dL (8.5-10.1)
[2022-06-04 10:06] LABS: ANION GAP 15 MMOL/L (8-16); BLOOD UREA NITROGEN 52.5 mg/dL (7-18); CO2 27 mmol/L (21-32); GLUCOSE,RANDOM 112 mg/dL (74-106)
[2022-06-04 10:26] LABS: ANISOCYTOSIS 1+
[2022-06-04 10:33] LABS: CREATININE 14.2 mg/dL (0.55-1.3)
[2022-06-04 11:20] LABS: BF GLUCOSE (CSF ONLY) 49 mg/dL (40-70)
[2022-06-05 08:45] LABS: BASO % 0.6 % (0-2.0); EOS % 2.4 % (0-4.5); HEMATOCRIT 28.7 % (35.4-49); HEMOGLOBIN 9.5 GM/dL (11.7-16.9); LYMPH % 10.4 % (8-40); MCH 31.7 pg (25.7-33.7); MEAN CELL VOLUME 96.2 fl (80-96); MEAN PLT VOLUME 8.2 fl (7.5-11.1); MONO % 17.6 % (3.8-10.2); PLATELET COUNT 118 10^3/uL (134-434); RBC 2.98 M/mm3 (4.00-5.60); RDW 16.2 % (11.9-15.9); WHITE BLOOD COUNT 3.5 K/mm3 (4.0-10.0)
[2022-06-05 09:03] LABS: CHLORIDE 102 mmol/L (98-107); SODIUM 141 mmol/L (136-145)
[2022-06-05 10:04] LABS: CALCIUM 8.2 mg/dL (8.5-10.1)
[2022-06-05 10:05] LABS: BLOOD UREA NITROGEN 29.5 mg/dL (7-18); CO2 31 mmol/L (21-32); GLUCOSE,RANDOM 100 mg/dL (74-106)
[2022-06-05 10:15] LABS: ANION GAP 8 MMOL/L (8-16); CREATININE 8.6 mg/dL (0.55-1.3)
[2022-06-05] MEDS: OXcarbazepine 300 MG TABLET (UD) PO SCH ×2 (10:45→21:59)
[2022-06-05] MEDS: CALCIUM ACETATE 667 MG CAPSULE (FP) PO SCH ×3 (10:45→16:52)
[2022-06-05] MEDS ORDERED: SODIUM CHLORIDE 250 ML IV PRN (15:36)
[2022-06-06 09:37] LABS: BASO % 1.3 % (0-2.0); EOS % 3.7 % (0-4.5); HEMOGLOBIN 8.6 GM/dL (11.7-16.9); LYMPH % 13.1 % (8-40); MCH 31.7 pg (25.7-33.7); MCHC 32.9 g/dl (32.0-35.9); MEAN CELL VOLUME 96.4 fl (80-96); MEAN PLT VOLUME 8.5 fl (7.5-11.1); MONO % 10.5 % (3.8-10.2); NEUT % 71.4 % (42.8-82.8); PLATELET COUNT 121 10^3/uL (134-434); RBC 2.69 M/mm3 (4.00-5.60); RDW 15.9 % (11.9-15.9)
[2022-06-06 09:52] LABS: CHLORIDE 127 mmol/L (98-107); SODIUM 145 mmol/L (136-145)
[2022-06-06 09:54] LABS: ANION GAP -12 MMOL/L (8-16); BLOOD UREA NITROGEN 32.2 mg/dL (7-18); CALCIUM 7.9 mg/dL (8.5-10.1); CO2 30 mmol/L (21-32); GLUCOSE,RANDOM 149 mg/dL (74-106)
[2022-06-06 10:00] LABS: CREATININE 9.3 mg/dL (0.55-1.3)
[2022-06-06] MEDS: CALCIUM ACETATE 667 MG CAPSULE (FP) PO SCH ×3 (12:15→18:07)
[2022-06-06] MEDS: ATOVAQUONE 750 MG/5 ML (UNIT-DOSE PACKAGING) PO SCH (12:17)
[2022-06-06] MEDS: OXcarbazepine 300 MG TABLET (UD) PO SCH ×2 (12:20→21:22)
[2022-06-06] MEDS ORDERED: PENICILLIN G BENZATHINE 2,400,000 UNIT/4 ML PFS IM ONE (13:55)
[2022-06-06] MEDS: FLUCONAZOLE 100 MG TABLET (UD) PO SCH (14:33)
[2022-06-07] MEDS: ATOVAQUONE 750 MG/5 ML (UNIT-DOSE PACKAGING) PO SCH (08:10)
[2022-06-07] MEDS: CALCIUM ACETATE 667 MG CAPSULE (FP) PO SCH ×3 (08:11→17:15)
[2022-06-07] MEDS: FLUCONAZOLE 100 MG TABLET (UD) PO SCH (09:17)
[2022-06-07] MEDS: OXcarbazepine 300 MG TABLET (UD) PO SCH (09:18)
[2022-06-07] MEDS ORDERED: SODIUM CHLORIDE 250 ML IV PRN (09:41)
[2022-06-07] MEDS ORDERED: EPOETIN ALFA-EPBX 10,000 UNIT/ML VIAL SQ ONE (09:41)
[2022-06-07 15:27] VITALS: BP 123/78; PULSE 101; TEMP 99.3
== END 2022-06-07 17:50 | disposition home or self-care (01) | DRG 391 ==
LOC: JER 11:36 → JERBED 14:59 → J8W 19:03
PROVIDERS: ADMIT Internal Medicine; ATTEND Internal Medicine
PROC: 009U3ZX Drainage of Spinal Canal, Percutaneous Approach, Diagnostic (ICD-10-PCS; principal; 2022-06-01)
PROC: 5A1D70Z Performance of Urinary Filtration, Intermittent, Less than 6 Hours Per Day (ICD-10-PCS; 2022-06-06)
DX: R19.7 Diarrhea, unspecified (principal); N18.6 End stage renal disease; B20 Human immunodeficiency virus [HIV] disease; I12.0 Hypertensive chronic kidney disease with stage 5 chronic kidney disease or end stage renal disease; Z99.2 Dependence on renal dialysis; E83.39 Other disorders of phosphorus metabolism; G40.909 Epilepsy, unspecified, not intractable, without status epilepticus; Z91.14 Patient's other noncompliance with medication regimen; Z85.46 Personal history of malignant neoplasm of prostate
CPT/HCPCS: 36415; 70551-TC; 71046-TC-FY; 74176-TC; 80048; 80053; 82945; 83735; 84100; 84157; 85025; 85027; 85610; 85730; 86592; 86593; 86780; 87040; 87070; 87102; 87116; 87205; 87206; 87210; 87899; 93005; 93010; 99285-25; C9803-CS; U0003; U0005

== ENCOUNTER 2024-09-07 13:16 | Inpatient (IN) | payer OTHER ==
[2024-09-07] MEDS ORDERED: ACETAMINOPHEN INJECTION 100 ML ONE (15:09)
[2024-09-07] MEDS: ACETAMINOPHEN 1000 MG/100 ML BAG IVPB ONE (15:14)
[2024-09-07 15:15] LABS: BASO % 1.2 % (0-2.0); EOS % 2.6 % (0-4.5); HEMATOCRIT 30.8 % (35.4-49); HEMOGLOBIN 9.7 GM/dL (11.7-16.9); LYMPH % 24.6 % (8-40); MCH 31.8 pg (25.7-33.7); MCHC 31.6 g/dl (32.0-35.9); MEAN CELL VOLUME 100.4 fl (80-96); MEAN PLT VOLUME 9.9 fl (7.5-11.1); MONO % 11.8 % (3.8-10.2); NEUT % 59.8 % (42.8-82.8); PLATELET COUNT 99 10^3/uL (134-434); RBC 3.06 M/mm3 (4.00-5.60); RDW 19.1 % (11.9-15.9); WHITE BLOOD COUNT 2.8 K/mm3 (4.0-10.0)
[2024-09-07 15:21] LABS: INR 1.03 (0.83-1.09); PROTHROMBIN TIME (PATIENT) 11.8 SEC (9.7-13.0)
[2024-09-07 15:24] LABS: ACTIVATED PTT 32.4 SECONDS (25.2-36.5)
[2024-09-07 15:29] LABS: CHLORIDE 105 mmol/L (98-107); POTASSIUM 4.7 mmol/L (3.5-5.1); SODIUM 141 mmol/L (136-145)
[2024-09-07 15:32] LABS: ALBUMIN 2.6 g/dl (3.4-5.0); ANION GAP 12 mmol/L (4-13); BLOOD UREA NITROGEN 93.4 mg/dL (7-18); CO2 23 mmol/L (21-32); GLUCOSE,RANDOM 91 mg/dL (74-106)
[2024-09-07 15:34] LABS: CALCIUM 6.8 mg/dL (8.5-10.1)
[2024-09-07 15:35] LABS: SGOT/AST 76 U/L (15-37); SGPT/ALT 95 U/L (13-61)
[2024-09-07 15:37] LABS: BILIRUBIN,TOTAL 0.5 mg/dL (0.2-1); TOT PROT 6.3 g/dl (6.4-8.2)
[2024-09-07 15:38] LABS: ALK PHOS 148 U/L (45-117)
[2024-09-07 15:46] LABS: CREATININE 24.1 mg/dL (0.55-1.3)
[2024-09-07] MEDS: ACETAMINOPHEN 500 MG TABLET (FP) PO ONE (18:41)
[2024-09-07] MEDS ORDERED: ACETAMINOPHEN 325 MG TABLET (FP) PO PRN (20:12)
[2024-09-07 20:21] LABS: HIV INTERPRETATION PRESUMPTIVE POSITIVE (NEGATIVE)
[2024-09-07] MEDS ORDERED: HEPARIN NA (PORCINE) 5,000 UNITS/ML 1ML VIAL IVPUSH PRN ×2 (20:41)
[2024-09-07] MEDS: HEPARIN NA (PORCINE) 5,000 UNITS/ML 1ML VIAL SQ ONE (21:12)
[2024-09-07] MEDS ORDERED: HEPARIN INFUSION - 25,000 UNITS/500 ML INFUS.BAG IVPB ONE (22:04)
[2024-09-07] MEDS: HEPARIN INFUSION - 25,000 UNITS/500 ML INFUS.BAG IVPB SCH (22:13)
[2024-09-07] MEDS ORDERED: CALCIUM GLUCONATE 10% - 1,000 MG/10 ML VIAL IVPB ONE (22:17)
[2024-09-08 00:55] VITALS: BMI 24.3
[2024-09-08] MEDS: CALCIUM GLUCONATE 10% - 1,000 MG/10 ML VIAL IVPB ONE (03:00)
[2024-09-08 07:00] LABS: EOS % 3.1 % (0-4.5); HEMOGLOBIN 10.4 GM/dL (11.7-16.9); LYMPH % 30.9 % (8-40); MCH 31.8 pg (25.7-33.7); MCHC 31.6 g/dl (32.0-35.9); MEAN CELL VOLUME 100.5 fl (80-96); MEAN PLT VOLUME 10.6 fl (7.5-11.1); MONO % 10.2 % (3.8-10.2); NEUT % 54.8 % (42.8-82.8); PLATELET COUNT 94 10^3/uL (134-434); RBC 3.29 M/mm3 (4.00-5.60); RDW 19.6 % (11.9-15.9); WHITE BLOOD COUNT 2.3 K/mm3 (4.0-10.0)
[2024-09-08 07:23] LABS: CHLORIDE 99 mmol/L (98-107); POTASSIUM 4.3 mmol/L (3.5-5.1); SODIUM 137 mmol/L (136-145)
[2024-09-08 07:25] LABS: ALBUMIN 2.6 g/dl (3.4-5.0); ANION GAP 15 mmol/L (4-13); BLOOD UREA NITROGEN 89.9 mg/dL (7-18); CALCIUM 7.2 mg/dL (8.5-10.1); CO2 23 mmol/L (21-32); GLUCOSE,RANDOM 298 mg/dL (74-106)
[2024-09-08 07:28] LABS: SGOT/AST 66 U/L (15-37); SGPT/ALT 84 U/L (13-61)
[2024-09-08 07:30] LABS: BILIRUBIN,TOTAL 0.5 mg/dL (0.2-1); TOT PROT 6.8 g/dl (6.4-8.2)
[2024-09-08 07:31] LABS: ALK PHOS 143 U/L (45-117)
[2024-09-08 07:38] LABS: CREATININE 24.3 mg/dL (0.55-1.3)
[2024-09-08] MEDS: CALCIUM ACETATE 667 MG CAPSULE (FP) PO SCH (09:06)
[2024-09-08] MEDS: FLUCONAZOLE 100 MG TABLET (UD) PO SCH (09:06)
[2024-09-08] MEDS: levETIRAcetam 500 MG TABLET (FP) PO SCH (09:06)
[2024-09-08] MEDS: DOLUTEGRAVIR SODIUM 50 MG TABLET (NON-FORMULARY) PO SCH (09:06)
[2024-09-08] MEDS: ATOVAQUONE 750 MG/5 ML (UNIT-DOSE PACKAGING) PO SCH (09:06)
[2024-09-08] MEDS ORDERED: DARUNAVIR 800 MG/COBICISTAT 150MG TABLET PO SCH (10:00)
[2024-09-08] MEDS: INSULIN ASPART SLIDING SCALE (NOVOLOG) 1 VIAL SQ SCH (11:32)
[2024-09-08] MEDS ORDERED: SODIUM CHLORIDE 250 ML IV PRN ×2 (14:28→14:30)
[2024-09-09 06:29] VITALS: RESP 18
[2024-09-09 08:17] LABS: BASO % 0.9 % (0-2.0); EOS % 1.7 % (0-4.5); HEMATOCRIT 29.6 % (35.4-49); HEMOGLOBIN 9.3 GM/dL (11.7-16.9); LYMPH % 30.1 % (8-40); MCH 31.6 pg (25.7-33.7); MCHC 31.3 g/dl (32.0-35.9); MEAN CELL VOLUME 100.8 fl (80-96); MEAN PLT VOLUME 9.9 fl (7.5-11.1); MONO % 13.4 % (3.8-10.2); NEUT % 53.9 % (42.8-82.8); PLATELET COUNT 79 10^3/uL (134-434); RBC 2.93 M/mm3 (4.00-5.60); RDW 19.1 % (11.9-15.9); WHITE BLOOD COUNT 2.4 K/mm3 (4.0-10.0)
[2024-09-09 08:29] LABS: ALBUMIN 2.4 g/dl (3.4-5.0); ALK PHOS 130 U/L (45-117); ANION GAP 11 mmol/L (4-13); BILIRUBIN,TOTAL 0.5 mg/dL (0.2-1); BLOOD UREA NITROGEN 63.8 mg/dL (7-18); CALCIUM 7.5 mg/dL (8.5-10.1); CHLORIDE 102 mmol/L (98-107); CO2 26 mmol/L (21-32); CREATININE 19.2 mg/dL (0.55-1.3); GLUCOSE,RANDOM 95 mg/dL (74-106); POTASSIUM 4.5 mmol/L (3.5-5.1); SGOT/AST 54 U/L (15-37); SGPT/ALT 70 U/L (13-61); SODIUM 140 mmol/L (136-145); TOT PROT 5.8 g/dl (6.4-8.2)
[2024-09-09] MEDS: INSULIN ASPART SLIDING SCALE (NOVOLOG) 1 VIAL SQ SCH (10:39)
[2024-09-09] MEDS: APIXABAN 5 MG TABLET PO SCH (13:30)
[2024-09-09 17:01] VITALS: TEMP 98
[2024-09-09 19:33] VITALS: PULSE 93
[2024-09-09 19:34] VITALS: BP 139/94
== END 2024-09-09 21:24 | disposition home or self-care (01) | DRG 299 ==
LOC: JER 13:16 → JERBED 20:00 → J7W 22:57
PROVIDERS: ADMIT Internal Medicine; ATTEND Internal Medicine
PROC: 5A1D70Z Performance of Urinary Filtration, Intermittent, Less than 6 Hours Per Day (ICD-10-PCS; principal; 2024-09-08)
PROC: 5A1D70Z Performance of Urinary Filtration, Intermittent, Less than 6 Hours Per Day (ICD-10-PCS; 2024-09-09)
DX: I82.411 Acute embolism and thrombosis of right femoral vein (principal); B59 Pneumocystosis; N18.6 End stage renal disease; B20 Human immunodeficiency virus [HIV] disease; I12.0 Hypertensive chronic kidney disease with stage 5 chronic kidney disease or end stage renal disease; I82.431 Acute embolism and thrombosis of right popliteal vein; G40.909 Epilepsy, unspecified, not intractable, without status epilepticus; E11.22 Type 2 diabetes mellitus with diabetic chronic kidney disease; Z99.2 Dependence on renal dialysis; Z91.158 Patient's noncompliance with renal dialysis for other reason; M62.81 Muscle weakness (generalized); D64.9 Anemia, unspecified
CPT/HCPCS: 36415; 80053; 82728; 82962; 83036; 83540; 83550; 85025; 85610; 85730; 86704; 86803; 87340; 87389; 87517; 93005; 93010; 93970-TC; 99285-25; J0131; J1644

== ENCOUNTER 2024-10-13 04:39 | Day surgery (SDC) | payer OTHER ==
[2024-10-12 09:54] VITALS: BMI 25.0
[2024-10-13] MEDS ORDERED: LIDOCAINE HCL/PF 2% SDV 5ML VIAL ONE (07:13)
[2024-10-13] MEDS ORDERED: MIDAZOLAM HCL 2 MG/2 ML SINGLE DOSE VIAL ONE (07:14)
[2024-10-13] MEDS ORDERED: ROCURONIUM BROMIDE 50 MG/5 ML SYRINGE ONE (07:14)
[2024-10-13] MEDS ORDERED: PROPOFOL 20 ML ONE (07:14)
[2024-10-13] MEDS ORDERED: SUCCINYLCHOLINE CHLORIDE 200 MG/10 ML SYRINGE ONE (07:14)
[2024-10-13] MEDS ORDERED: BUPIVACAINE HCL/PF 0.5% (5MG/ML) 10 ML VIAL ONE (07:19)
[2024-10-13] MEDS ORDERED: ceFAZolin SODIUM 1 GM VIAL ONE (08:08)
[2024-10-13] MEDS ORDERED: KETOROLAC TROMETHAMINE 30 MG/1 ML VIAL ONE (08:08)
[2024-10-13] MEDS ORDERED: ONDANSETRON 4 MG/2 ML VIAL ONE (08:08)
[2024-10-13] MEDS ORDERED: DEXAMETHASONE SOD PHOSPHATE 4 MG/1 ML VIAL ONE (08:08)
[2024-10-13] MEDS ORDERED: PROPOFOL 40 ML ONE ×2 (08:08→09:13)
[2024-10-13] MEDS ORDERED: LIDOCAINE HCL 1%, 10 MG/ML (20ML VIAL) ONE (08:10)
[2024-10-13] MEDS: ceFAZolin SODIUM 1 GM VIAL IVPB ONE (08:10)
[2024-10-13] MEDS: LIDOCAINE HCL 1%, 10 MG/ML (20ML VIAL) NR ONE (08:24)
[2024-10-13] MEDS ORDERED: ONDANSETRON 4 MG/2 ML VIAL IVPUSH PRN (10:15)
[2024-10-13] MEDS ORDERED: oxyCODONE HCL 5 MG TABLET PO PRN ×4 (10:15→10:51)
[2024-10-13] MEDS ORDERED: PROMETHAZINE HCL 25 MG/1 ML VIAL IVPB PRN (10:15)
[2024-10-13] MEDS ORDERED: ACETAMINOPHEN INJECTION 100 ML ONE (10:18)
[2024-10-13] MEDS: ACETAMINOPHEN 1000 MG/100 ML BAG IVPB ONE (10:22)
[2024-10-13] MEDS: LACTATED RINGERS SOLUTION 1,000 ML IV SCH (10:23)
[2024-10-13] MEDS ORDERED: ACETAMINOPHEN 325 MG TABLET (FP) PO PRN ×2 (10:24)
[2024-10-13 11:58] VITALS: RESP 16
[2024-10-13 12:41] VITALS: BP 123/84; PULSE 94; TEMP 97.6
== END 2024-10-13 13:57 | disposition home or self-care (01) ==
LOC: JASU-SURG 04:39
PROVIDERS: ATTEND Surgery
PROC: 0WPG03Z Removal of Infusion Device from Peritoneal Cavity, Open Approach (ICD-10-PCS; principal; 2024-10-13 08:00)
DX: I12.0 Hypertensive chronic kidney disease with stage 5 chronic kidney disease or end stage renal disease (principal)
CPT/HCPCS: 36415; 94760; J0131; J1644

== ENCOUNTER 2025-06-08 02:22 | Inpatient (IN) | payer OTHER ==
[2025-06-08] MEDS ORDERED: FUROSEMIDE 40 MG/4 ML INJECTABLE VIAL ONE (02:42)
[2025-06-08] MEDS: FUROSEMIDE 40 MG/4 ML INJECTABLE VIAL IVPUSH ONE (02:48)
[2025-06-08] MEDS: DEXTROSE 50%-WATER - 25 GM/50 ML VIAL IVPUSH ONE ×2 (02:50→04:50)
[2025-06-08] MEDS: ONDANSETRON 4 MG/2 ML VIAL IVPB ONE (02:50)
[2025-06-08] MEDS ORDERED: ONDANSETRON 4 MG/2 ML VIAL ONE (02:51)
[2025-06-08] MEDS ORDERED: DEXTROSE 50%-WATER 25 GM/50 ML DISP.SYRIN ONE ×3 (02:51→06:47)
[2025-06-08 03:11] LABS: BG HCT 30.0 % (35.4-49); VENOUS BASE EXCESS -12.7 mmol/L (-2-2); VENOUS O2 SATURATION 71.3 % (70-80); VENOUS PCO2 40.7 mmHg (38-52)
[2025-06-08 03:11] LABS: ABSOLUTE IMMATURE GRANULOCYTES 0.04 x10^3/uL (0.0-0.031); BASOPHILS # 0.01 x10^3/uL (0.01-0.08); EOSINOPHIL % 1.3 % (0.8-7.0); EOSINOPHILS # 0.07 x10^3/uL (0.04-0.54); MCHC 31.8 g/dl (32.3-36.5); MEAN CELL VOLUME 100.7 fl (79.0-92.2); MEAN PLT VOLUME 12.8 fl (9.4-12.4); MONOCYTE # 0.24 x10^3/uL (0.30-0.82); MONOCYTE % 4.3 % (5.3-12.2); RDW 19.9 % (12.2-16.1)
[2025-06-08 03:13] LABS: VENOUS PH 7.181 (7.310-7.410)
[2025-06-08 03:16] LABS: CO2 15 mmol/L (21-32); GLUCOSE,RANDOM 91 mg/dL (74-106)
[2025-06-08 03:18] LABS: SGPT/ALT 25 U/L (13-61)
[2025-06-08 03:19] LABS: SGOT/AST 47 U/L (15-37)
[2025-06-08 03:20] LABS: TOT PROT 9.1 g/dl (6.4-8.2)
[2025-06-08 03:21] LABS: ALK PHOS 138 U/L (45-117)
[2025-06-08 03:32] LABS: ARTERIAL BLD GAS O2 SATURATION 51.4 % (95-98); ARTERIAL BLOOD GAS BASE EXCESS -14.0 mmol/L (-2-2); ARTERIAL BLOOD GAS PCO2 42.40 mmHg (35-45); BG HCT 31.0 % (35.4-49)
[2025-06-08 03:35] LABS: ARTERIAL BLOOD GAS PO2 35.0 mmHg (80-100)
[2025-06-08] MEDS ORDERED: PIPERACILLIN/TAZOB 2.25 GM 2.25 GM/50 ML BAG IVPB ONE (03:35)
[2025-06-08 03:36] LABS: LACTIC ACID 7.4 mmol/L (0.4-2.0)
[2025-06-08 03:36] LABS: CREATININE 17.5 mg/dL (0.55-1.3); N-TERMINAL BNP > 35000.0 pg/ml (5-125)
[2025-06-08] MEDS: PIPERACILLIN/TAZOB 2.25 GM 2.25 GM in DEXTROSE 5%-WATER - 50 ML IVPB ONE (04:00)
[2025-06-08] MEDS ORDERED: CALCIUM GLUCONATE 10% - 1,000 MG/10 ML VIAL ONE (04:05)
[2025-06-08] MEDS ORDERED: INSULIN REGULAR HUMAN 100 UNITS/ML *VIAL ONE (04:06)
[2025-06-08 04:11] LABS: INR 1.55 (0.83-1.09); PROTHROMBIN TIME (PATIENT) 17.0 SEC (9.7-13.0)
[2025-06-08 04:14] LABS: ACTIVATED PTT 27.8 SECONDS (25.2-36.5)
[2025-06-08] MEDS: CALCIUM GLUCONATE 10% - 1,000 MG/10 ML VIAL IVPB ONE (04:28)
[2025-06-08] MEDS: INSULIN REGULAR HUMAN 100 UNITS/ML *VIAL IVPUSH ONE (04:28)
[2025-06-08 05:28] LABS: BG HCT 27.0 % (35.4-49); VENOUS BASE EXCESS -8.3 mmol/L (-2-2); VENOUS O2 SATURATION 76.2 % (70-80); VENOUS PCO2 42.0 mmHg (38-52); VENOUS PH 7.256 (7.310-7.410)
[2025-06-08] MEDS ORDERED: VANCOMYCIN HCL 125 MG CAPSULE (RESTRICTED TO ID ONLY) PO SCH (05:30)
[2025-06-08] MEDS: VANCOMYCIN HCL 1,500 MG in DEXTROSE 5%-WATER - 500 ML IVPB ONE (05:31)
[2025-06-08 05:34] LABS: HCV DIAGNOSTIC IN-HOUSE W/RFLX NON-REACTIVE (NONREACTIVE)
[2025-06-08 05:51] LABS: CO2 24 mmol/L (21-32); GLUCOSE,RANDOM 110 mg/dL (74-106)
[2025-06-08 05:54] LABS: SGOT/AST 32 U/L (15-37); SGPT/ALT 24 U/L (13-61)
[2025-06-08] MEDS ORDERED: ACETAMINOPHEN 325 MG TABLET (FP) ONE (05:55)
[2025-06-08 05:56] LABS: TOT PROT 8.0 g/dl (6.4-8.2)
[2025-06-08 05:57] LABS: ALK PHOS 121 U/L (45-117)
[2025-06-08] MEDS ORDERED: VANCOMYCIN ORAL SOLUTION 125 MG/2.5 ML PO SCH (06:00)
[2025-06-08] MEDS ORDERED: HEPARIN NA (PORCINE) 5,000 UNITS/ML 1ML VIAL SQ SCH (06:00)
[2025-06-08] MEDS: ACETAMINOPHEN 325 MG TABLET (FP) PO PRN (06:03)
[2025-06-08] MEDS: VANCOMYCIN HCL 125 MG CAPSULE (RESTRICTED TO ID ONLY) PO ONE (06:03)
[2025-06-08 06:12] LABS: CREATININE 17.6 mg/dL (0.55-1.3); LACTIC ACID 3.4 mmol/L (0.4-2.0)
[2025-06-08] MEDS: DEXTROSE 50%-WATER 25 GM/50 ML DISP.SYRIN IVPUSH ONE (06:53)
[2025-06-08] MEDS ORDERED: levETIRAcetam 500 MG TABLET (FP) PO SCH (10:00)
[2025-06-08] MEDS ORDERED: APIXABAN 5 MG TABLET ONE (10:46)
[2025-06-08] MEDS ORDERED: FLUCONAZOLE 100 MG TABLET (UD) ONE (10:46)
[2025-06-08] MEDS ORDERED: PANTOPRAZOLE 40 MG TABLET PO ONE (10:46)
[2025-06-08] MEDS: PANTOPRAZOLE 40 MG TABLET PO SCH (11:11)
[2025-06-08] MEDS: DOLUTEGRAVIR SODIUM 50 MG TABLET (NON-FORMULARY) PO SCH (11:11)
[2025-06-08] MEDS: FLUCONAZOLE 100 MG TABLET (UD) PO SCH (11:11)
[2025-06-08] MEDS: APIXABAN 5 MG TABLET PO SCH (11:11)
[2025-06-08] MEDS: VANCOMYCIN HCL 125 MG CAPSULE (RESTRICTED TO ID ONLY) PO SCH (11:12)
[2025-06-08] MEDS ORDERED: SODIUM CHLORIDE 250 ML IV PRN (11:33)
[2025-06-08] MEDS: levETIRAcetam 500 MG TABLET (FP) PO ONE (17:04)
[2025-06-08 19:37] LABS: HIV INTERPRETATION PRESUMPTIVE POSITIVE (NEGATIVE)
[2025-06-08] MEDS: MEROPENEM 1 GM in DEXTROSE 5%-WATER 100 ML IVPB ONE (21:10)
[2025-06-08] MEDS: levETIRAcetam 500 MG TABLET (FP) PO SCH (21:11)
[2025-06-09 07:32] LABS: ABSOLUTE IMMATURE GRANULOCYTES 0.07 x10^3/uL (0.0-0.031); BASOPHILS # 0.01 x10^3/uL (0.01-0.08); EOSINOPHIL % 1.2 % (0.8-7.0); EOSINOPHILS # 0.09 x10^3/uL (0.04-0.54); MCHC 31.6 g/dl (32.3-36.5); MEAN CELL VOLUME 99.6 fl (79.0-92.2); MEAN PLT VOLUME 11.4 fl (9.4-12.4); MONOCYTE # 0.58 x10^3/uL (0.30-0.82); MONOCYTE % 7.9 % (5.3-12.2); RDW 19.1 % (12.2-16.1)
[2025-06-09 08:04] LABS: CO2 25 mmol/L (21-32); GLUCOSE,RANDOM 90 mg/dL (74-106)
[2025-06-09 08:13] LABS: CREATININE 15.7 mg/dL (0.55-1.3)
[2025-06-09] MEDS: MEROPENEM 500 MG in DEXTROSE 5%-WATER 100 ML IVPB SCH (10:26)
[2025-06-09] MEDS: DARUNAVIR 800 MG/COBICISTAT 150MG TABLET PO SCH (10:31)
[2025-06-09] MEDS: ATOVAQUONE 750 MG/5 ML (UNIT-DOSE PACKAGING) PO SCH (10:32)
[2025-06-09 12:49] LABS: IRON SERUM 16.0 ug/dL (50-175)
[2025-06-09] MEDS: ACETAMINOPHEN 1000 MG/100 ML BAG IVPB PRN (13:41)
[2025-06-09] MEDS: IRON SUCROSE INJECTION 300 MG in SODIUM CHLORIDE 235 ML IVPB ONE (15:47)
[2025-06-10 08:10] LABS: ABSOLUTE IMMATURE GRANULOCYTES 0.04 x10^3/uL (0.0-0.031); BASOPHILS # 0.02 x10^3/uL (0.01-0.08); EOSINOPHIL % 1.9 % (0.8-7.0); EOSINOPHILS # 0.11 x10^3/uL (0.04-0.54); IMMATURE PLATELET FRACTION # 7.70 x10^3/uL; MCHC 33.1 g/dl (32.3-36.5); MEAN CELL VOLUME 97.2 fl (79.0-92.2); MEAN PLT VOLUME 11.9 fl (9.4-12.4); MONOCYTE # 0.60 x10^3/uL (0.30-0.82); MONOCYTE % 10.2 % (5.3-12.2); RDW 19.2 % (12.2-16.1)
[2025-06-10 08:24] LABS: CO2 22 mmol/L (21-32)
[2025-06-10 08:25] LABS: GLUCOSE,RANDOM 94 mg/dL (74-106)
[2025-06-10 08:43] LABS: CREATININE 16.0 mg/dL (0.55-1.3)
[2025-06-10] MEDS ORDERED: SODIUM CHLORIDE 250 ML IV PRN ×2 (09:27→17:12)
[2025-06-10] MEDS: IRON SUCROSE INJECTION 300 MG in SODIUM CHLORIDE 235 ML IVPB ONE (09:38)
[2025-06-10] MEDS: EPOETIN ALFA-EPBX 20,000 UNIT/ML VIAL SQ ONE (09:38)
[2025-06-10] MEDS ORDERED: PROPOFOL 60 ML ONE (12:03)
[2025-06-10] MEDS ORDERED: LIDOCAINE HCL/PF 2% SDV 5ML VIAL ONE (12:03)
[2025-06-10] MEDS ORDERED: MIDAZOLAM HCL 2 MG/2 ML SINGLE DOSE VIAL ONE (12:03)
[2025-06-10] MEDS ORDERED: LIDOCAINE HCL 1%, 10 MG/ML (20ML VIAL) ONE (12:25)
[2025-06-10] MEDS ORDERED: HEPARIN NA (PORCINE) 5,000 UNITS/ML 1ML VIAL ONE (12:25)
[2025-06-10] MEDS: LIDOCAINE HCL 1%, 10 MG/ML (50 mL VIAL) INF ONE ×3 (13:06)
[2025-06-10] MEDS ORDERED: PROMETHAZINE HCL 25 MG/1 ML VIAL IVPB PRN (14:09)
[2025-06-10] MEDS ORDERED: ONDANSETRON 4 MG/2 ML VIAL IVPUSH PRN (14:09)
[2025-06-10] MEDS: LACTATED RINGERS SOLUTION 1,000 ML IV SCH (14:33)
[2025-06-10] MEDS ORDERED: ACETAMINOPHEN 1000 MG/100 ML BAG IVPB PRN (14:59)
[2025-06-10] MEDS: VANCOMYCIN HCL 125 MG CAPSULE (RESTRICTED TO ID ONLY) PO SCH (18:16)
[2025-06-10] MEDS: MEROPENEM 500 MG in DEXTROSE 5%-WATER 100 ML IVPB SCH (23:03)
[2025-06-10] MEDS: levETIRAcetam 500 MG TABLET (FP) PO SCH (23:03)
[2025-06-10] MEDS: APIXABAN 2.5 MG TABLET PO SCH (23:03)
[2025-06-11 07:30] LABS: ABSOLUTE IMMATURE GRANULOCYTES 0.04 x10^3/uL (0.0-0.031); BASOPHILS # 0.01 x10^3/uL (0.01-0.08); EOSINOPHIL % 3.3 % (0.8-7.0); EOSINOPHILS # 0.17 x10^3/uL (0.04-0.54); MCHC 32.0 g/dl (32.3-36.5); MEAN CELL VOLUME 99.2 fl (79.0-92.2); MEAN PLT VOLUME 11.3 fl (9.4-12.4); MONOCYTE # 0.53 x10^3/uL (0.30-0.82); MONOCYTE % 10.4 % (5.3-12.2); RDW 19.5 % (12.2-16.1)
[2025-06-11 08:03] LABS: CO2 29 mmol/L (21-32); GLUCOSE,RANDOM 93 mg/dL (74-106)
[2025-06-11 08:06] LABS: CREATININE 10.3 mg/dL (0.55-1.3)
[2025-06-11] MEDS: CEFTRIAXONE 2 GM in DEXTROSE 5%-WATER 100 ML IVPB SCH (10:09)
[2025-06-11] MEDS: FLUCONAZOLE 100 MG TABLET (UD) PO SCH (10:09)
[2025-06-11] MEDS: PANTOPRAZOLE 40 MG TABLET PO SCH (10:09)
[2025-06-11] MEDS: ATOVAQUONE 750 MG/5 ML (UNIT-DOSE PACKAGING) PO SCH (10:10)
[2025-06-11] MEDS: DARUNAVIR 800 MG/COBICISTAT 150MG TABLET PO SCH (10:10)
[2025-06-11] MEDS: DOLUTEGRAVIR SODIUM 50 MG TABLET (NON-FORMULARY) PO SCH (10:10)
[2025-06-12 10:18] LABS: ABSOLUTE IMMATURE GRANULOCYTES 0.05 x10^3/uL (0.0-0.031); BASOPHILS # 0.02 x10^3/uL (0.01-0.08); EOSINOPHIL % 2.8 % (0.8-7.0); EOSINOPHILS # 0.12 x10^3/uL (0.04-0.54); MCHC 32.4 g/dl (32.3-36.5); MEAN CELL VOLUME 98.1 fl (79.0-92.2); MEAN PLT VOLUME 11.3 fl (9.4-12.4); MONOCYTE # 0.56 x10^3/uL (0.30-0.82); MONOCYTE % 13.1 % (5.3-12.2); RDW 19.9 % (12.2-16.1)
[2025-06-12 11:30] LABS: CO2 26 mmol/L (21-32); GLUCOSE,RANDOM 104 mg/dL (74-106)
[2025-06-12 11:37] LABS: CREATININE 11.7 mg/dL (0.55-1.3)
[2025-06-12] MEDS ORDERED: SODIUM CHLORIDE 250 ML IV PRN (14:50)
[2025-06-12] MEDS: EPOETIN ALFA-EPBX 4,000 UNIT/ML VIAL SQ ONE (15:12)
[2025-06-13 09:19] LABS: ABSOLUTE IMMATURE GRANULOCYTES 0.04 x10^3/uL (0.0-0.031); BASOPHILS # 0.02 x10^3/uL (0.01-0.08); EOSINOPHIL % 2.2 % (0.8-7.0); EOSINOPHILS # 0.09 x10^3/uL (0.04-0.54); MCHC 31.8 g/dl (32.3-36.5); MEAN CELL VOLUME 98.1 fl (79.0-92.2); MEAN PLT VOLUME 11.3 fl (9.4-12.4); MONOCYTE # 0.50 x10^3/uL (0.30-0.82); MONOCYTE % 12.1 % (5.3-12.2); RDW 19.6 % (12.2-16.1)
[2025-06-13 09:47] LABS: CO2 30 mmol/L (21-32); GLUCOSE,RANDOM 128 mg/dL (74-106)
[2025-06-13 09:54] LABS: CREATININE 7.9 mg/dL (0.55-1.3)
[2025-06-13 14:05] VITALS: BMI 25.0
[2025-06-13] MEDS ORDERED: SODIUM CHLORIDE 250 ML IV PRN (14:19)
[2025-06-14 08:02] LABS: IMMATURE PLATELET FRACTION # 8.30 x10^3/uL; MCHC 31.9 g/dl (32.3-36.5); MEAN CELL VOLUME 98.2 fl (79.0-92.2); MEAN PLT VOLUME 11.5 fl (9.4-12.4); RDW 19.5 % (12.2-16.1)
[2025-06-14 08:41] LABS: CO2 27 mmol/L (21-32); GLUCOSE,RANDOM 88 mg/dL (74-106)
[2025-06-14 08:45] LABS: CREATININE 9.5 mg/dL (0.55-1.3)
[2025-06-14] MEDS: EPOETIN ALFA-EPBX 4,000 UNIT/ML VIAL SQ ONE (09:42)
[2025-06-15 02:07] VITALS: RESP 18
[2025-06-15 06:51] VITALS: PULSE 93; TEMP 98.2
[2025-06-15 07:04] LABS: ABSOLUTE IMMATURE GRANULOCYTES 0.05 x10^3/uL (0.0-0.031); BASOPHILS # 0.02 x10^3/uL (0.01-0.08); EOSINOPHIL % 2.6 % (0.8-7.0); EOSINOPHILS # 0.11 x10^3/uL (0.04-0.54); IMMATURE PLATELET FRACTION # 11.90 x10^3/uL; MCHC 32.6 g/dl (32.3-36.5); MEAN CELL VOLUME 97.8 fl (79.0-92.2); MEAN PLT VOLUME 11.6 fl (9.4-12.4); MONOCYTE # 0.53 x10^3/uL (0.30-0.82); MONOCYTE % 12.7 % (5.3-12.2); RDW 20.5 % (12.2-16.1)
[2025-06-15 08:59] LABS: GLUCOSE,RANDOM 90.0 mg/dL (74-106)
[2025-06-15 09:00] LABS: CO2 28.0 mmol/L (21-32)
[2025-06-15 09:02] LABS: CREATININE 7.2 mg/dL (0.55-1.3)
[2025-06-15] MEDS ORDERED: CEFUROXIME AXETIL 500 MG TABLET PO SCH (10:00)
[2025-06-15 13:04] VITALS: BP 103/77
[2025-06-16] MEDS ORDERED: CEFUROXIME AXETIL 500 MG TABLET PO SCH (10:00)
== END 2025-06-15 16:53 | DRG 628 ==
LOC: JER 02:22 → JERBED 04:45 → J4S 12:07
PROVIDERS: ADMIT Internal Medicine; ATTEND Internal Medicine
PROC: 5A1D70Z Performance of Urinary Filtration, Intermittent, Less than 6 Hours Per Day (ICD-10-PCS; principal; 2025-06-08)
PROC: 05CY0ZZ Extirpation of Matter from Upper Vein, Open Approach (ICD-10-PCS; 2025-06-10)
PROC: 057Y0ZZ Dilation of Upper Vein, Open Approach (ICD-10-PCS; 2025-06-10)
PROC: 5A1D70Z Performance of Urinary Filtration, Intermittent, Less than 6 Hours Per Day (ICD-10-PCS; 2025-06-10)
PROC: B50NYZZ Plain Radiography of Left Upper Extremity Veins using Other Contrast (ICD-10-PCS; 2025-06-10)
PROC: 5A1D70Z Performance of Urinary Filtration, Intermittent, Less than 6 Hours Per Day (ICD-10-PCS; 2025-06-12)
PROC: 5A1D70Z Performance of Urinary Filtration, Intermittent, Less than 6 Hours Per Day (ICD-10-PCS; 2025-06-14)
DX: E87.70 Fluid overload, unspecified (principal); J96.01 Acute respiratory failure with hypoxia; N18.6 End stage renal disease; B20 Human immunodeficiency virus [HIV] disease; R78.81 Bacteremia; I13.2 Hypertensive heart and chronic kidney disease with heart failure and with stage 5 chronic kidney disease, or end stage renal disease; I50.22 Chronic systolic (congestive) heart failure; I24.81 Acute coronary microvascular dysfunction; T82.868A Thrombosis due to vascular prosthetic devices, implants and grafts, initial encounter; E87.20 Acidosis, unspecified; G40.909 Epilepsy, unspecified, not intractable, without status epilepticus; D64.9 Anemia, unspecified; E83.39 Other disorders of phosphorus metabolism; D69.6 Thrombocytopenia, unspecified; D50.9 Iron deficiency anemia, unspecified; R00.0 Tachycardia, unspecified; E87.5 Hyperkalemia; M62.81 Muscle weakness (generalized); B96.20 Unspecified Escherichia coli [E. coli] as the cause of diseases classified elsewhere; I25.10 Atherosclerotic heart disease of native coronary artery without angina pectoris; Y83.8 Other surgical procedures as the cause of abnormal reaction of the patient, or of later complication, without mention of misadventure at the time of the procedure
CPT/HCPCS: 36415; 36600; 71045-TC-FY; 76000-TC-FY; 76870-TC; 80048; 80053; 82728; 82803; 82962; 83540; 83550; 83605; 83735; 83880; 84100; 84484; 85025; 85610; 85730; 86803; 86850; 86900; 86901; 87040; 87045; 87046; 87205; 87324; 87340; 87389; 87449; 87637-QW; 93005; 93010; 93990-TC; 94660; 94760; 99291; C1757; J1756; Q5106